=== PATIENT | male | born 1960 | race Hispanic/Latino ===

== ENCOUNTER 2018-02-25 16:37 | Inpatient (IN) | payer OTHER ==
[~2018-02-25] VITALS: Ht 172.7 cm; Wt 93.0 kg
[~2018-02-25 16:37] MED LIST: HYZAAR 100-251 EACH PO
[2018-02-25] MEDS ORDERED: SODIUM CHLORIDE 0.9% 1000ML 1,000 ML IV STA (17:23)
[2018-02-25] MEDS ORDERED: PANTOPRAZOLE 40 MG 10ML VIAL IV SCH (18:00)
[2018-02-25 20:23] LABS: BASOPHILS % 0.5 % (0.0-1.0); EOSINOPHILS # (AUTO) 0.2 (0.0-0.4); EOSINOPHILS % 2.3 % (0.0-6.0); HEMATOCRIT 36.1 % (38.2-49.6); HEMOGLOBIN 12.9 g/dL (14.0-18.0); LYMPHOCYTES # (AUTO) 2.6 (1.0-3.2); LYMPHOCYTES % 33.8 % (18.0-39.1); MEAN CORPUSCULAR HEMOGLOBIN 31.2 pg (28-32); MEAN CORPUSCULAR HGB CONC 35.7 g/dL (31-35); MEAN CORPUSCULAR VOLUME 87.4 fL (81-99); MONOCYTES # (AUTO) 0.5 (0.2-0.8); MONOCYTES % 6.8 % (4.4-11.3); NEUTROPHILS # (AUTO) 4.4 (2.1-6.9); NEUTROPHILS % 56.1 % (38.7-80.0); PLATELET COUNT 194 x10e3/uL (140-360); RED BLOOD COUNT 4.13 x10e6/uL (4.3-5.7); RED CELL DISTRIBUTION WIDTH 12.5 % (11.7-14.4)
[2018-02-25 20:35] LABS: INR 1.13; PROTHROMBIN TIME 13.6 seconds (11.9-14.5)
[2018-02-25 20:36] LABS: PARTIAL THROMBOPLASTIN TIME 31.6 seconds (23.8-35.5)
[2018-02-25 20:45] LABS: ALBUMIN 3.7 g/dL (3.5-5.0); ALBUMIN/GLOBULIN RATIO 1.2 (0.8-2.0); ANION GAP 14.1 mmol/L (8-16); CALCIUM 8.8 mg/dL (8.4-10.2); CREATININE, SERUM 1.25 mg/dL (0.72-1.25); MAGNESIUM 2.2 MG/DL (1.3-2.1); POTASSIUM 4.1 mmol/L (3.5-5.1)
[2018-02-25] MEDS: SODIUM CHLORIDE 0.9% 1000ML 1,000 ML IV SCH (22:40)
[2018-02-25 22:45] VITALS: BP 145/60
[2018-02-25 22:52] VITALS: BP 145/60
[2018-02-26] VITALS (7 sets, daily range): BP systolic 119–133; BP diastolic 60–77
[2018-02-26 03:12] LABS: ALANINE AMINOTRANSFERASE 23 IU/L (0-55); ALBUMIN 3.1 g/dL (3.5-5.0); ALBUMIN/GLOBULIN RATIO 1.4 (0.8-2.0); ALKALINE PHOSPHATASE 45 IU/L (40-150); ANION GAP 10.3 mmol/L (8-16); BLOOD UREA NITROGEN 18 mg/dL (7-26); BUN/CREATININE RATIO 22 (6-25); CALCIUM 7.9 mg/dL (8.4-10.2); CARBON DIOXIDE 23 mmol/L (22-29); CHLORIDE 110 mmol/L (98-107); CREATININE, SERUM 0.83 mg/dL (0.72-1.25); EST GLOMERULAR FILTRATION RATE > 60 ML/MIN (60-); GLUCOSE 98 mg/dL (74-118); POTASSIUM 4.3 mmol/L (3.5-5.1); SODIUM 139 mmol/L (136-145)
[2018-02-26 04:06] LABS: HEMATOCRIT 31.9 % (38.2-49.6); HEMOGLOBIN 10.9 g/dL (14.0-18.0)
[2018-02-26] MEDS: PANTOPRAZOLE 40 MG 10ML VIAL IV SCH (08:49)
[2018-02-26 11:26] LABS: HEMATOCRIT 30.3 % (38.2-49.6); HEMOGLOBIN 10.8 g/dL (14.0-18.0)
[2018-02-26] MEDS: SODIUM CHLORIDE 0.9% 1000ML 1,000 ML IV SCH ×2 (14:45→14:57)
[2018-02-26 16:22] LABS: HEMATOCRIT 31.4 % (38.2-49.6); HEMOGLOBIN 10.9 g/dL (14.0-18.0)
[2018-02-27] VITALS (8 sets, daily range): BP systolic 124–146; BP diastolic 57–81
[2018-02-27 00:36] LABS: HEMATOCRIT 30.2 % (38.2-49.6); HEMOGLOBIN 10.8 g/dL (14.0-18.0)
[2018-02-27] MEDS: SODIUM CHLORIDE 0.9% 1000ML 1,000 ML IV SCH ×2 (01:12→13:23)
[2018-02-27 07:46] LABS: HEMATOCRIT 36.3 % (38.2-49.6); HEMOGLOBIN 12.6 g/dL (14.0-18.0)
[2018-02-27] MEDS: PANTOPRAZOLE 40 MG 10ML VIAL IV SCH (08:20)
[2018-02-27 12:31] LABS: HEMATOCRIT 31.5 % (38.2-49.6); HEMOGLOBIN 11.1 g/dL (14.0-18.0)
[2018-02-27 18:39] LABS: HEMOGLOBIN 11.6 g/dL (14.0-18.0)
[2018-02-28] VITALS: BP 134/61
[2018-02-28 00:22] LABS: HEMATOCRIT 31.7 % (38.2-49.6); HEMOGLOBIN 11.1 g/dL (14.0-18.0)
[2018-02-28 04:00] VITALS: BP 129/64
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
[2018-02-28 06:50] LABS: HEMATOCRIT 32.2 % (38.2-49.6); HEMOGLOBIN 11.2 g/dL (14.0-18.0)
[2018-02-28 08:05] VITALS: BP 142/64
[2018-02-28] MEDS: PANTOPRAZOLE 40 MG 10ML VIAL IV SCH (10:09)
[2018-02-28 11:41] VITALS: BP 145/61
[2018-02-28 12:02] LABS: HEMATOCRIT 34.7 % (38.2-49.6); HEMOGLOBIN 12.1 g/dL (14.0-18.0)
== END 2018-02-28 13:18 | disposition home or self-care (01) | DRG 920 ==
LOC: ER 16:37 → MED/SURG3 21:29
DX: K91.840 Postprocedural hemorrhage of a digestive system organ or structure following a digestive system procedure (principal); K62.5 Hemorrhage of anus and rectum; D64.9 Anemia, unspecified
CPT/HCPCS: 36415; 80053; 83735; 85014; 85018; 85025; 85610; 85730; 86850; 86870; 86880; 86900; 86905; 86920; 86922; 93005; 96361; 99001; 99284; J7030